=== PATIENT | female | born 1970 | race Hispanic/Latino ===

== ENCOUNTER → 2022-05-13 | Day surgery (SDC) | payer OTHER ==
[~2022-05-13] MED LIST: Lidocaine 1% PF 5 ML VIAL ONE; Sodium Bicarbonate 2.5 MEQ/5 ML VIAL ONE
== END ==
LOC: CSHRAD 12:09
PROVIDERS: ATTEND Neurological Surgery
PROC: B02BYZZ Computerized Tomography (CT Scan) of Spinal Cord using Other Contrast (ICD-10-PCS; principal; 2022-05-13)
DX: M51.36 Other intervertebral disc degeneration, lumbar region (principal); M43.16 Spondylolisthesis, lumbar region; M50.30 Other cervical disc degeneration, unspecified cervical region; M43.10 Spondylolisthesis, site unspecified; I10 Essential (primary) hypertension
CPT/HCPCS: 62304; 72132

== ENCOUNTER 2022-11-12 10:20 | Outpatient (CLI) | payer OTHER | END 2022-11-12 10:21 | disposition home or self-care (01) | LOC: CSHRAD 10:20 | PROVIDERS: ATTEND Neurological Surgery | DX: M47.26 Other spondylosis with radiculopathy, lumbar region (principal); Z98.890 Other specified postprocedural states | CPT/HCPCS: 72100 ==